=== PATIENT | female | born 1990 | race Caucasian/White ===

== ENCOUNTER 2018-12-20 16:30 | Emergency (ER) | payer BC ==
[2018-12-20 17:04] VITALS: BP 141/82
--- NOTE | 2018-12-20 17:12 | UC ---
Skin Complaint HPI - HPI Summary HPI Summary: Pt presents with c/o of painful rash that began 4-5 days after she felt pain in left upper shoulder/scapula. Pt reports then she had onset of painful, blistered rash on left upper back that extends to anterior chest wall. - History of Current Complaint Time Seen by Provider: 12/20/18 16:47 Stated Complaint: SKIN CONCERN,HEADACHE Hx Obtained From: Patient Hx Last Menstrual Period: 12/11/18 ?: No Onset/Duration: Sudden Onset, Lasting Days, Still Present Skin Exposure Onset/Duration: Days Ago Timing: Constant Onset Severity: Mild Current Severity: Moderate Pain Intensity: 8 Location: Discrete - left upper back Character: Pain, Redness, Raised, Painful Aggravating Factor(s): Touch Alleviating Factor(s): Nothing Associated Signs & Symptoms: Positive: Rash, Drainage, Tenderness - Allergy/Home Medications Allergies/Adverse Reactions: Allergies Allergy/AdvReac Type Severity Reaction Status Date / Time No Known Allergies Allergy Verified 12/20/18 17:04 Home Medications: Home Medications Slique 2 tab PO BID 12/20/18 [History Confirmed 12/20/18] PMH/Surg Hx/FS Hx/Imm Hx Previously Healthy: Yes - Surgical History Surgical History: Yes Surgery Procedure, Year, and Place: tonsillectomy, feet, adnoids - Social History Occupation: Employed Full-time Lives: With Family Alcohol Use: Rare Substance Use Type: None Smoking Status (MU): Never Smoked Tobacco Have You Smoked in the Last Year: No - Immunization History Vaccination Up to Date: Yes Review of Systems All Other Systems Reviewed And Are Negative: Yes Constitutional: Positive: Negative Skin: Positive: Rash Eyes: Positive: Negative ENT: Positive: Negative Respiratory: Positive: Negative Cardiovascular: Positive: Negative Gastrointestinal: Positive: Negative Genitourinary: Positive: Negative Motor: Positive: Negative Neurovascular: Positive: Negative Musculoskeletal: Positive: Myalgia Neurological: Positive: Headache Psychological: Positive: Negative Is Patient Immunocompromised?: No Physical Exam Triage Information Reviewed: Yes Appearance: Well-Appearing Vital Signs: Initial Vital Signs Temp 98.8 F 12/20/18 16:52 Pulse 78 12/20/18 16:52 Resp 16 12/20/18 16:52 BP 141/82 12/20/18 16:52 Pulse Ox 100 12/20/18 16:52 Vital Signs Reviewed: Yes Eye Exam: Normal ENT Exam: Normal ENT: Positive: Hearing grossly normal Dental Exam: Normal Respiratory: Positive: No respiratory distress Musculoskeletal Exam: Normal Neurological Exam: Normal Psychological Exam: Normal Skin: Positive: Rashes - erythematous , clear fluid filled vessicles Course/Dx - Differential Diagnoses - Skin Complaint Differential Diagnoses: Contact Dermatitis, Varicella Zoster - Diagnoses Provider Diagnosis: Shingles rash Discharge ED - Sign-Out/Discharge Documenting (check all that apply): Patient Departure All imaging exams completed and their final reports reviewed: No Studies - Discharge Plan Condition: Stable Disposition: HOME Prescriptions: ValACYclovir (*) [Valtrex 1 GM(*)] 1 gm PO Q8H #21 tab Patient Education Materials: Shingles (ED) Forms: *Work Release Referrals: Castro Alford DO [Primary Care Provider] - As Soon As Possible - Billing Disposition and Condition Condition: STABLE Disposition: Home
== END 2018-12-20 17:23 | disposition home or self-care (01) ==
LOC: UCCORT 16:30
DX: B02.9 Zoster without complications (principal); R51 Headache
CPT/HCPCS: 99201; G0463